=== PATIENT | male | born 1950 | race Caucasian/White ===

== ENCOUNTER 2020-11-08 22:22 | Emergency (ER) | payer OTHER ==
[~2020-11-08] VITALS: Ht 175.3 cm; Wt 111.1 kg
[2020-11-08 22:35] VITALS: BP 138/100
--- NOTE | 2020-11-08 22:35 | NUR ---
TO BED AMBULATORY
--- NOTE | 2020-11-08 22:40 | NUR ---
PATIENT PRESENTS TO ED WITH C/O SUDDEN ONSET ABDOMINAL PAIN WITH VOMITING . PT STATES IT STARTED THIS AFTERNOON. SKIN IS PINK/WARM/DRY; AAOX4 WITH EVEN AND STEADY GAIT; LUNGS CLEAR BL; HR EVEN AND REGULAR; PT DENIES ANY FEVER, CP, SOB, OR COUGH AT THIS TIME VSS; PATIENT POSITIONED FOR COMFORT; HOB ELEVATED; BEDRAILS UP X2; BED DOWN. ER MD MADE AWARE OF PT STATUS.
--- NOTE | 2020-11-08 22:55 | NUR ---
SL ESTABLISHED, LABS DRAWN
--- NOTE | 2020-11-08 23:35 | NUR ---
Dr. Pickard examining patient.
[2020-11-08] MEDS ORDERED: NACL 0.9% 1,000 ML IV SCH (23:40)
[2020-11-08] MEDS ORDERED: KETOROLAC 30 MG/ML VIAL IVP ONE (23:40)
[2020-11-08 23:51] LABS: BASOPHILS % (AUTO) 0.3 % (0.0-2.0); EOSINOPHILS # (AUTO) 0.1 K/uL (0-0.4); EOSINOPHILS % (AUTO) 0.9 % (0.0-4.0); HEMATOCRIT 50.8 % (36-52); HEMOGLOBIN 17.2 g/dL (12.0-18.0); LYMPHOCYTES # (AUTO) 2.2 K/uL (2.0-11.5); LYMPHOCYTES % (AUTO) 19.5 % (20.5-51.1); MEAN CORPUSCULAR HEMOGLOBIN 29 pg (27-31); MEAN CORPUSCULAR HGB CONC 34 g/dL (33-37); MEAN CORPUSCULAR VOLUME 86.4 fL (80-94); MONOCYTES # (AUTO) 0.5 K/uL (0.8-1.0); MONOCYTES % (AUTO) 4.3 % (1.7-9.3); NEUTROPHILS # (AUTO) 8.3 K/uL (1.8-7.7); PLATELET COUNT (AUTO) 171 K/uL (140-450); RED BLOOD CELL COUNT(AUTO) 5.88 MIL/uL (4.20-6.10); RED CELL DISTRIBUTION WIDTH 15.5 % (11.6-13.7); WHITE BLOOD COUNT (AUTO) 11.1 K/uL (4.8-10.8)
--- NOTE | 2020-11-09 00:04 | NUR ---
PT TAKEN TO CT
[2020-11-09 00:06] LABS: ALBUMIN 4.3 g/dL (3.4-5.0); ANION GAP 15.6 (8-16); CARBON DIOXIDE 24.3 mmol/L (21-32); CREATININE 1.4 mg/dL (0.6-1.3); POTASSIUM 3.9 mmol/L (3.5-5.1); TOTAL BILIRUBIN 0.4 mg/dL (0.0-1.0)
--- NOTE | 2020-11-09 00:11 | NUR ---
PT RETURN FROM CT
--- NOTE | 2020-11-09 01:30 | NUR ---
EXAM RESULTS RETURNED, REVIEWED, READY FOR DISCHARGE. PT STATES HE IS FEELING BETTER
[2020-11-09] MEDS ORDERED: IBUP-2213 PO (01:34)
[2020-11-09] MEDS ORDERED: OMEP40EC24 PO (01:34)
[2020-11-09 01:45] VITALS: BP 138/72
--- NOTE | 2020-11-09 01:45 | NUR ---
Patient discharged with v/s stable. Written and verbal after care instructions given and explained. Patient alert, oriented and verbalized understanding of instructions. Ambulatory with steady gait. All questions addressed prior to discharge. ID band removed. Patient advised to follow up with PMD. Rx of PRILOSEC given. Patient educated on indication of medication including possible reaction and side effects. Opportunity to ask questions provided and answered.
== END 2020-11-09 01:45 | disposition home or self-care (01) ==
LOC: MED 22:22
DX: R10.84 Generalized abdominal pain (principal); E11.9 Type 2 diabetes mellitus without complications
CPT/HCPCS: 36415; 74176; 80053; 83690; 85025; 96361; 96374; 99284; J1885; J7030; 96375